=== PATIENT | female | born 1980 | race Hispanic/Latino ===

== ENCOUNTER 2018-02-23 08:50 | Day surgery (SDC) | payer BC ==
[2018-02-22 15:20] VITALS: BMI 28.0
[2018-02-23 10:17] LABS: HEMOGLOBIN 11.6 g/dL (12.0-16.0); MEAN CORPUSCULAR HEMOGLOBIN 31.2 pg (27.0-31.0); MEAN CORPUSCULAR HGB CONC 33.9 g/dL (33.0-37.0); RBC 3.71 Mil/uL (3.80-5.20); RED CELL DISTRIBUTION WIDTH 13.1 % (11.5-14.5); WHITE BLOOD COUNT 5.5 K/uL (4.8-10.8)
[2018-02-23] MEDS ORDERED: ceFAZolin IV 2 gm in Dextrose 2 GM/50 ML BAG IVPB ONE (10:20)
[2018-02-23] MEDS ORDERED: Bupivacaine HCl 0.25% PF (30 ml) Inj ONE (10:20)
[2018-02-23] MEDS ORDERED: Midazolam 2 MG/2 ML VIAL ONE (11:00)
[2018-02-23] MEDS ORDERED: ePHEDrine 50 mg/ml Inj ONE ×2 (11:00→11:45)
[2018-02-23] MEDS ORDERED: Propofol 10 mg/ml Inj (20 ML) ONE (11:00)
[2018-02-23] MEDS ORDERED: Lidocaine 4% (Laryng-O-Jet) Kit MM ONE (11:01)
[2018-02-23] MEDS ORDERED: Succinylcholine 200 mg/10 ml Inj IV ONE (11:01)
[2018-02-23] MEDS ORDERED: Rocuronium 10 mg/ml (5 ml) ONE (11:01)
[2018-02-23] MEDS ORDERED: Lactated Ringer's 1,000 ML IV ONE ×2 (11:15→11:25)
[2018-02-23] MEDS ORDERED: Dexamethasone 4 mg/1 ml ONE (11:43)
[2018-02-23] MEDS ORDERED: Neostigmine 1:1000 (1 mg/ml) Inj ONE (11:44)
[2018-02-23] MEDS ORDERED: Cellulose Hemostat 2X3 Sheet TP ONE (13:10)
[2018-02-23] MEDS ORDERED: Silver Nitrate Topical - Stick TOP ONE (13:25)
[2018-02-23] MEDS: HYDROmorphone 0.5 mg/0.5 ml ISec IVP PRN ×3 (13:45→14:18)
[2018-02-23] MEDS ORDERED: Oxycodone/Acetaminophen 5/325 mg Tab PO PRN (13:51)
--- NOTE | 2018-02-23 13:59 | CP.PCM.PN ---
Subjective - Date & Time of Evaluation Date of Evaluation: 02/23/18 Time of Evaluation: 13:58 - Subjective Subjective: [place] [employer] patient report reviewed, no CDS. Patient counseled on the risks of addiction, physical or psychological dependence, and overdose associated with opioid drugs and the danger of taking opioid drugs with alcohol and other central nervous system depressants, and cautioned patient on storage and disposal. Objective - Vital Signs/Intake and Output Vital Signs (last 24 hours): Temp Pulse Resp BP Pulse Ox 98.3 F 70 20 111/70 98 02/23/18 09:35 02/23/18 09:39 02/23/18 09:35 02/23/18 09:35 02/23/18 09:35 Intake and Output: 02/23/18 02/23/18 06:59 18:59 Intake Total 1800 Output Total 600 Balance 1200 - Medications Medications: Current Medications Hydromorphone HCl (Dilaudid) 0.5 mg IVP Q10M PRN PRN Reason: Pain, moderate (4-7) Stop: 02/23/18 15:49 Lactated Ringer's (Lactated Ringer's) 1,000 mls @ 125 mls/hr IV .Q8H JULIO CÉSAR Metoclopramide HCl (Reglan) 10 mg IVP ONCE PRN PRN Reason: Nausea/Vomiting Stop: 02/23/18 15:49 Ondansetron HCl (Zofran Inj) 4 mg IVP ONCE PRN PRN Reason: Nausea/Vomiting Stop: 02/23/18 15:49 Oxycodone/Acetaminophen (Percocet 5/325 Mg Tab) 1 tab PO Q4 PRN PRN Reason: Pain, moderate (4-7) Stop: 02/26/18 13:52 - Labs Labs: 02/23/18 10:06
[2018-02-23] MEDS ORDERED: Lactated Ringer's 1,000 ML IV SCH (14:00)
[2018-02-23] MEDS ORDERED: Albuterol-Ipratrop 3 mg / 0.5 (3 ml) UD ONE (14:35)
[2018-02-23] MEDS ORDERED: Albuterol-Ipratrop 3 mg / 0.5 (3 ml) UD INH ONE (14:36)
[2018-02-23 17:16] VITALS: RESP 20; O2SAT 97
[2018-02-23 18:24] VITALS: BP 122/60; PULSE 82; TEMP 98.1
[2018-02-23] MEDS ORDERED: Trimethobenzamide 200 mg/2 mL Inj IM ONE (19:28)
--- NOTE | 2018-02-27 15:55 | OP ---
PROCEDURE DATE: 02/23/2018 SURGEON: Lucho Mcgowan MD SHIP STEWARD: Jean Eid MD ANESTHESIOLOGIST: Damaris Gillette MD ANESTHETIC: General Endo PREOPERATIVE DIAGNOSES: 1. Incapacitating pelvic pain. 2. Incapacitating abdominal pain. 3. Abnormal uterine bleeding. 4. History of pelvic endometriosis. 5. History of previous failed medical surgical therapy. 6. History of bladder pain. 7. Gastrointestinal and genitourinary symptoms. 8. Rule out interstitial cystitis. 9. Adenomyosis. POSTOPERATIVE DIAGNOSES: 1. Incapacitating pelvic pain. 2. Incapacitating abdominal pain. 3. Abnormal uterine bleeding. 4. History of pelvic endometriosis. 5. History of previous failed medical surgical therapy. 6. .pelvic endometriosis 7. Gastrointestinal and genitourinary symptoms. 8. .Ovarian adhesions. 9. Rectal endometriosis. 10. Mild right hydroureter. 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 Examination under anesthesia. 2. Video_assisted hysteroscopy. 3. Cystoscopy. 4. Robotic da Adriana laparoscopy. 5. Enterolysis. 6. Bilateral ureterolysis. 7. Bilateral salpingo_ovariolysis. 8. Multiple peritoneal biopsies and excision of endometriosis. 9. Treatment of endometriosis. 10. Shaving of endometriosis of the bowel. 11. excision of ovarian endometriosis 12. Bilateral ureteral catheterization and injection of IC-Green dye. Dr. Eid from General Surgery was consulted to perform appendectomy procedure and he will dictate that separately. COMPLICATIONS: None. SAMPLES: left periutereral left ovarian fossa right ovarian fossa posterior cervical anterior rectal right ovarian fossa right periureteral ovarian implant of endometriosis DRAINS: none ESTIMATED BLOOD LOSS: Minimal. FINDINGS: Genitalia: normal, external genitalia, cervix normal without lesions or polyps. Hysteroscopy showed normal cavity with no evidence of polyps or fibroids. Cystoscopy was performed to rule out endometriosis of bladder mucosa and also interstitial cystitis, also injury. The bladder was normal with no evidence of stone, trigonitis or cystitis. Positive jet flow visualized in both ureters. Laparoscopy was normal, gallbladder was normal, liver edges appeared to be normal. Ascending colon and transverse were normal. The appendix appeared to be abnormal with both fibrosis and thickening. There was evidence of severe adhesions, fibrosis and endometriosis of the rectovaginal septum and attachment of the bowel to the posterior aspect of the uterus and to the right adnexa which was severely adherent to the right pelvic sidewall overlying the right ureter. . Ther right Fallopian tube appeared to have some inflammatory changes and was slightly dilated. . There was also evidence of endometriosis of the rectovaginal septum in right and left perirectal areas There was also evidence of mild right hydroureter. CONSENT: The patient had been thoroughly evaluated and counseled regarding pros and cons of the procedure, the reasonable alternative, and the possible complications. She understood and accepted the risks involved. Appropriate literature was provided to the patient. The patient was in understanding that given her history and presurgical exam, she knows that she was a high risk and average patient. She accepted all the risks involved and all the questions had been answered to her satisfaction. DESCRIPTION OF PROCEDURE: Initiation of the case: After adequate anesthesia was obtained, the patient was placed in the dorsal lithotomy position with extreme care of placement of the patient without hyperextension or hyperflexing the hips. At this point, the patient was prepped and draped, the surgeon was gowned and gloved. A time- out was taken according to the hospital procedure and the procedure was started. At this point, we performed the cystoscopy and bilateral ureteral catheterization. At this point we performed cystoscopy: A cystoscope was inserted into the bladder, under direct visualization and the bladder was visualized. The bladder was free of lesions, tumors. There was no evidence of interstitial cystitis, and there was only a mild amount of trigonitis. At this point, both ureters were identified and appeared to be in normal anatomical position. At this point, utilizing an open-ended 5-Bel[place]an catheter, the left ureter was catheterized all the way to the distal ureter, and a 5 mL of IC-Green were injected into the distal ureter. Similarly, on the contralateral ureter, the ureter was catheterized all the way to the distal ureter, and a 5 mL of IC-Green were injected into the distal ureter. At this point, the stents were removed, and the hysteroscope was removed and a 16- [place]an Jackson was placed into the bladder. At this point, we proceeded with a hysteroscopy: A speculum was placed in the vagina, and the anterior lip of the cervix was grasped. The cervix was dilated and a hysteroscope was inserted into the cavity. The cavity appeared to be of normal size without fibroids or polyps At this point, we proceeded with placement of trocars and docking of the Da Adriana Xi robot The surgeons were re-gowned and re-gloved, and an open laparoscopy was performed by making an incision below the umbilicus, and the fascia was incised , and the peritoneum was entered in the blunt fashion. The cannula was inserted and the abdomen was insufflated, and under direct visualization 3 additional ports were inserted, left upper quadrant, left mid quadrant and right upper quadrant. At this point, the da Adriana Xi robot was brought into the field and docked, and the instruments were inserted under direct visualization. With extreme care not to injure the bowel or any other area. As per the dictation, the upper abdomen appeared to be normal with no evidence of any lesions. The pelvis had the findings described above, which included significant adhesions, fibrosis of the posterior cul-de-sac, significant endometriosis with deep endometriosis nodules. The right ovary was adherent to both the ovarian fossas and the posterior aspect of the uterus with significant inflammatory changes. At this point, we proceeded with the left ureterolysis. The ureter appeared to dilated and it was clearly identified utilizing fluorescent technology. An incision was made on the peritoneum at the top of the pelvic brim, and incision was then carried down all the way opening the peritoneum and all the way down from the pelvic brim all the way down to the ovarian fossa extending the incision below the ovary. It was a progressive dissection where the ureter was progressively lateralized and the peritoneum medialized, thus freeing the ureter all the way down to the crossing of the uterine vessels. After this was done and the ureter was freed and lateralized and a large area of peritoneum, which had been opened up was excised and sent to pathology. At this point, after ureter had been identified, we were able to elevate the ovary and dissect it from the pelvic side wall in the ovarian fossa At this point, we proceeded with the left ovariolysis. The ovary was gently dissected and elevated off the ovarian fossa and area of fibrosis of endometriosis were exposed. At this point, we proceeded with the right ureterolysis. The ureter was identified and again utilizing florescent technology, the retroperitoneal space was entered and a full dissection was performed entering the retroperitoneal space and dissecting the ureter, removing the ureter laterally and the peritoneum medially. A full dissection was performed all the way down to the ovarian fossa, on the crossing of the uterine arteries. A large area of peritoneum containing endometriosis was also dissected and sent to Pathology. At this point, we proceeded with a right ovariolysis. The ovary was progressively elevated, areas of deep endometriosis and superficial endometriosis were dissected out and the ovary was finally elevated. At this point, we proceeded with a treatment of endometriosis and excision of endometriosis. On the left hand side, a large area of peritoneum, where containing endometriosis was excised in the ovarian fossa with the upper margin of the excision at the utero_ovarian ligament all the way down to the uterosacral ligament. Large areas of fibrosis were identified in posterior cul-de-sac and the rectovaginal space was affected with endometriosis and severe fibrosis. The rectovaginal area was then dissected and the space was opened, and we were able to dissect the rectum away from the posterior aspect of the cervix. Additional areas of endometriosis were dissected from the posterior aspect of the Uterus. At this point, we proceeded with excision of the endometriosis on the right hand side where similarly in a full excision of endometriosis was performed by performing incision from starting at the right utero_ovarian ligament all the way down to the right uterosacral ligament. After elevating the ovary an are of endometriosis was identified on the underside of the ovary and it was excised.After this excision was performed a large defect was present in the area of the obturator fossa. In order to prevent the right ovary from adherig to this area , interceed was placed. At this point, Dr. Eid from General Surgery was called in and he performed an appendectomy as the appendix appeared to be involved with endometriosis , which she will dictate separately. At this point, it was checked for hemostasis and appeared to be excellent. All the endometriosis had been excised. At this point, we performed the destruction of inflamed peritoneum, utilizing the J_plasma device. There were inflammatory areas in the posterior aspect of the uterus, which were not endometriotic, but they were purely inflammatory and these were not excisable, as they were not endometriotic. Therefore, we proceeded with ablation of such area utilizing the J plasma. Once this was done, it was checked for hemostasis and appeared to be excellent. After this was done, it was checked for hemostasis and appeared to be excellent. The pelvis was irrigated. The da Adriana Xi robot was removed. The abdomen desufflated. The instruments were removed. The incisions were closed in layers with 0 PDS for the fascia and 4-0 Monocryl for the skin. The patient was awakened up and taken to recovery room in excellent condition. MD DARWIN Corral
--- NOTE | 2018-03-16 17:13 | PCM.OP ---
Operative Report - Operative Report Date of Surgery/Procedure: 02/23/18 Time of Surgery/Procedure: 13:00 Surgeon: Dr. Jean Eid Sternman: Dr. Lucho Mcgowan Anesthesia/Sedation: general/Dr. Gillette Pre-Operative Diagnosis: abdominal pain and endometriosis Post-Operative Diagnosis: same Indication for Surgery: as above Operative Findings: as above Procedure/Operation Description: 1-Excision perirectal endometriosis (times two) ]. 2-Appendectomy. Brief History: This 37 year old woman was already brought to the operating room by Dr. Mcgowan when he requested an intraoperatice general surgery consultation. Decription of the Procedure: The patient had alredy had the robotic procedure initiatd by Dr. Mcgowan (seoarate dictation). After taking control of the robotic console the first of two rectal lesions was incised circumferentially and with blunt and sharp dissection with the aid of electrocautery the lesion was excised en-bloc, mared and sent to pathology separaely. The second rectal lesion was excised en-bloc in a similar fashion and sent to pathology separately. Thje appendix was retracted anteriorly and the mesnetery was dessicated with monopolar to the base. The base was then ligated with three -0 v icryl endoloops and then trnasected, mared and sent separately to pathology. Hemostasis was deemed adeqaute. The operation was turned over to Dr. Mcgowan (separate dictation Dr. Mcgowan). Estimated Blood Loss: 5 cc Complications: none Specimen: perirectal lesions x2 and appendix Discharge & Condition: stable
== END 2018-02-23 20:05 | disposition home or self-care (01) ==
LOC: H.OPSURG 08:50
PROVIDERS: ATTEND Obstetrics & Gynecology Reproductive Endocrinology
DX: N80.0 Endometriosis of uterus (principal); J45.909 Unspecified asthma, uncomplicated; K21.9 Gastro-esophageal reflux disease without esophagitis; N80.3 Endometriosis of pelvic peritoneum; N80.1 Endometriosis of ovary; N13.4 Hydroureter; N73.6 Female pelvic peritoneal adhesions (postinfective); N83.201 Unspecified ovarian cyst, right side; N93.9 Abnormal uterine and vaginal bleeding, unspecified
CPT/HCPCS: 36415; 44970; 58563; 58662; 85027; 86850; 86900; 88304; 88305; 94640; C1729; J0330; J0690; J1100; J1170; J2001; J2250; J2405; J2704; J2710; J2765; J3010; J7030; J7120